=== PATIENT | female | born 1985 | race Caucasian/White ===

== ENCOUNTER 2021-04-07 13:09 | Emergency (ER) | payer OTHER ==
[2021-04-07 14:11] LABS: HEMOGLOBIN 13.6 gm/dl (12.3-15.3); RED BLOOD COUNT 4.8 M/UL (4.00-5.10)
[2021-04-07 14:38] LABS: BUN/CREATININE RATIO 22 (0-10)
[2021-04-07] MEDS ORDERED: ZOFRAN 4 MG TAB4 MG PO (17:22)
== END 2021-04-07 19:00 | disposition home or self-care (01) ==
LOC: ER1 13:09
PROVIDERS: Physician Assistant
DX: R10.11 Right upper quadrant pain (principal); R10.12 Left upper quadrant pain; F17.200 Nicotine dependence, unspecified, uncomplicated; D72.829 Elevated white blood cell count, unspecified
CPT/HCPCS: 80053; 81001; 82150; 82550; 82553; 83605; 83690; 83874; 84484; 84703; 85025; 96372; 96374; 96375; 96376; 99284; J1170; J2270; J2405; Q9967